=== PATIENT | female | born 1965 | race Caucasian/White ===

== ENCOUNTER → 2018-01-30 | Outpatient (CLI) | payer OTHER ==
[~2018-01-30] MED LIST: ADVIL200 M1 PO; FLEXERIL10 MG PO; Fioricet 325 MG1 TAB PO; MOTRIN800 MG PO; PREDNICOT20 MG PO; ULTRAM50 MG PO; VITAMIN D-32000 UNI1 PO
== END | disposition home or self-care (01) ==
LOC: MAMMO 03:45
DX: Z12.31 Encounter for screening mammogram for malignant neoplasm of breast (principal)

== ENCOUNTER → 2018-02-14 | Day surgery (SDC) | payer OTHER ==
[~2018-02-14] VITALS: Ht 157.4 cm; Wt 92.1 kg
--- NOTE | ~2018-02-14 | PROC NOTE ---
[place], [place] PROCEDURE NOTE NAME: MIKI HERNANDEZ UNIT #: [id number] ROOM: DOCTOR: RICH OAKLEY MD BIRTHDATE: [birth year] DOS: 02/14/2018 PREOPERATIVE DIAGNOSIS: Screening examination. POSTOPERATIVE DIAGNOSES: Sigmoid diverticulosis, sigmoid polyp x 1. PROCEDURE: Colonoscopy with polypectomy. ENDOSCOPIST: Rich Oakley MD FLOATING DERRICK OPERATOR: YOMAIRA. ANESTHESIA: MAC. INDICATIONS: This is a 52-year-old lady with the family history of colon cancer (son) who is here for a screening examination. The procedure and its complications were explained to the patient in detail preoperatively. Complications that were discussed included but were not limited to bleeding, missed lesions, colon perforation, and prolonged pain. She agreed to proceed. DESCRIPTION OF PROCEDURE: After identifying the patient, the patient was brought to the endoscopy suite and placed in the left lateral position. After IV sedation was administered, a timeout procedure was called in and a digital rectal exam was performed, which was within normal limits. An adult colonoscope was now introduced into the anal canal and advanced sequentially into the rectum, sigmoid colon, descending colon, transverse colon and ascending colon up to the cecum. Upon reaching the cecum, the scope was withdrawn. The prep was found to be optimal. Upon reaching the cecum, the procedure of the withdrawal took approximately 8 minutes and 30 seconds. There was sigmoid diverticulosis, which was mild to moderate in nature that was identified. Also, at approximately 40 cm from the anal verge, a single polyp was identified, which was removed with the help of a snare. It was then sucked out and sent for histopathological diagnosis. The biopsy site was visualized again and there was no bleeding seen. The rest of the colon was within normal limits. Upon removing the scope, the patient was brought back to the recovery room in stable fashion. There were no complications. Dr. Rich Oakley, the attending endoscopist, was present throughout the operating case. Based on these findings, the patient is recommended to have another colonoscopy in the next 3-5 years or sooner if she had new symptoms. These findings were discussed with the patient's next of kin in the recovery room. [place], [place] PROCEDURE NOTE NAME: MIKI HERNANDEZ UNIT #: [id number] ROOM: DOCTOR: RICH OAKLEY MD BIRTHDATE: [birth year] Rich Oakley MD CM:PROCNOTE:PROCEDURE NOTE [id number] RICH OAKLEY MD
[2018-02-14 08:00] VITALS: BP 117/69
[2018-02-14 09:00] VITALS: BP 78/39
[2018-02-14 09:15] VITALS: BP 92/54
[2018-02-14 09:21] VITALS: BP 106/70
== END | disposition home or self-care (01) ==
LOC: SDC 01-29 12:30
DX: Z12.11 Encounter for screening for malignant neoplasm of colon (principal); D12.5 Benign neoplasm of sigmoid colon; K57.30 Diverticulosis of large intestine without perforation or abscess without bleeding; I10 Essential (primary) hypertension; K21.9 Gastro-esophageal reflux disease without esophagitis; F17.210 Nicotine dependence, cigarettes, uncomplicated; G89.29 Other chronic pain; G62.9 Polyneuropathy, unspecified; E66.9 Obesity, unspecified; Z98.51 Tubal ligation status; Z79.899 Other long term (current) drug therapy; Z98.890 Other specified postprocedural states; Z68.37 Body mass index [BMI] 37.0-37.9, adult; Z80.0 Family history of malignant neoplasm of digestive organs; Z80.1 Family history of malignant neoplasm of trachea, bronchus and lung; Z80.49 Family history of malignant neoplasm of other genital organs

== ENCOUNTER 2018-08-28 10:10 | Emergency (ER) | payer OTHER ==
[~2018-08-28] VITALS: Ht 160 cm; Wt 77.1 kg
== END 2018-08-28 12:09 | disposition home or self-care (01) ==
LOC: ED 10:10
DX: M25.562 Pain in left knee (principal); M25.462 Effusion, left knee; Z79.899 Other long term (current) drug therapy; W18.39XA Other fall on same level, initial encounter; Y93.89 Activity, other specified; Y92.89 Other specified places as the place of occurrence of the external cause; Y99.8 Other external cause status

== ENCOUNTER 2019-03-07 09:41 | Emergency (ER) | payer OTHER ==
[~2019-03-07] VITALS: Ht 160 cm; Wt 77.1 kg
[2019-03-07 10:13] LABS: BILIRUBIN NEGATIVE (NEGATIVE); BLOOD 1+ (NEGATIVE); CLARITY CLOUDY (CLEAR); COLOR YELLOW (YELLOW); GLUCOSE NEGATIVE (NEGATIVE); KETONE NEGATIVE (NEGATIVE); LEUKO ESTERASE TRACE (NEGATIVE); NITRITE POSITIVE (NEGATIVE); SPECIFIC GRAVITY 1.025 (1.005-1.030); UROBILINOGEN 0.2 E.U./dl (0.2-1.0)
[2019-03-07 10:41] LABS: BACTERIA 4+
[2019-03-07 10:42] LABS: EPITHELIAL CELLS 20-30; RBC 16-20 rbc/hpf (0-2)
[2019-03-07] MEDS ORDERED: SEPTDS PO (10:56)
[2019-03-07] MEDS ORDERED: PYRIDIUM200 M1 PO (10:56)
== END 2019-03-07 11:00 | disposition home or self-care (01) ==
LOC: ED 09:41
PROVIDERS: Physician Assistant
DX: N39.0 Urinary tract infection, site not specified (principal); Z79.899 Other long term (current) drug therapy; Z98.51 Tubal ligation status

== ENCOUNTER 2019-06-17 13:16 | Emergency (ER) | payer OTHER ==
[~2019-06-17] VITALS: Ht 157.4 cm; Wt 77.1 kg
[~2019-06-17 13:16] MED LIST changes: +PYRIDIUM200 M1 PO; +SEPTDS PO
[2019-06-17 13:58] LABS: BILIRUBIN NEGATIVE (NEGATIVE); BLOOD NEGATIVE (NEGATIVE); CLARITY SL CLOUDY (CLEAR); COLOR YELLOW (YELLOW); GLUCOSE NEGATIVE (NEGATIVE); KETONE NEGATIVE (NEGATIVE); LEUKO ESTERASE TRACE (NEGATIVE); NITRITE NEGATIVE (NEGATIVE); UROBILINOGEN 0.2 E.U./dl (0.2-1.0)
[2019-06-17 14:05] LABS: BACTERIA 2+; EPITHELIAL CELLS 31-40; MUCOUS 3+
[2019-06-17] MEDS ORDERED: PYRIDIUM200 M1 PO (14:09)
[2019-06-17] MEDS ORDERED: CEFUROXIME AXE500 MG PO (14:09)
== END 2019-06-17 14:15 | disposition home or self-care (01) ==
LOC: ED 13:16
PROVIDERS: Emergency Medicine
DX: N39.0 Urinary tract infection, site not specified (principal); I10 Essential (primary) hypertension; Z79.899 Other long term (current) drug therapy; Z79.82 Long term (current) use of aspirin

== ENCOUNTER 2019-12-29 11:57 | Inpatient (IN) | payer OTHER ==
[~2019-12-29] VITALS: Ht 157.4 cm; Wt 79.4 kg
[~2019-12-29 11:57] MED LIST changes: +CEFUROXIME AXE500 MG PO
[2019-12-29 12:09] VITALS: BP 114/85
[2019-12-29 12:53] LABS: BASO % 0.2 % (0.0-1.0); HEMATOCRIT 38.6 % (37.0-47.0); LYMPH # 0.6 10*3/uL (1.3-4.4); LYMPH % 5.2 % (27.0-41.0); MEAN CELL VOLUME 82.3 fl (81.0-99.0); MEAN CORPUSCULAR HGB 26.7 pg (27.0-31.0); MEAN CORPUSCULAR HGB CONC 32.4 g/dl (33.0-37.0); MEAN PLATELET VOLUME 11.2 fl (9.6-12.3); MONO % 8.4 % (3.0-9.0); NEUT % 85.8 % (47.0-73.0); PLATELET COUNT AUTOMATED 317 10*3/uL (130-400); RED BLOOD COUNT 4.69 10*6/uL (4.10-5.10); RED CELL DISTRI WIDTH 15.4 % (0-14.5); WHITE BLOOD COUNT 11.6 10*3/uL (4.8-10.8)
[2019-12-29 13:02] LABS: BILIRUBIN 3+ (NEGATIVE); BLOOD NEGATIVE (NEGATIVE); CLARITY CLOUDY (CLEAR); COLOR ORANGE (YELLOW); GLUCOSE NEGATIVE (NEGATIVE); KETONE NEGATIVE (NEGATIVE); SPECIFIC GRAVITY 1.025 (1.005-1.030)
[2019-12-29 13:03] LABS: LEUKO ESTERASE TRACE (NEGATIVE); NITRITE NEGATIVE (NEGATIVE)
[2019-12-29 13:08] LABS: ALKALINE PHOSPHATASE 112 U/L (45-117); BUN 17 mg/dl (7-24); CHLORIDE 102 mmol/L (98-107); CREATININE 0.86 mg/dL (0.55-1.02); POTASSIUM 3.8 mmol/L (3.5-5.1); SGOT/AST 15 IU/L (3-35); SGPT/ALT 21 U/L (12-78); SODIUM 134 mmol/L (136-145); TOTAL PROTEIN 7.6 gm/dL (6.4-8.2)
[2019-12-29 13:11] LABS: BACTERIA 2+; EPITHELIAL CELLS 21-30; MUCOUS 1+
--- NOTE | 2019-12-29 14:00 | NUR ---
PT. RESTING QUIETLY IN BED WATCHING TV. WILL CONT TO MONITOR. CALL LIGHT IN REACH.
[2019-12-29 15:49] VITALS: BP 110/61
--- NOTE | 2019-12-29 15:51 | NUR ---
PT. QUIETLY RESTING IN BED ON CELL PHONE. WILL CONT TO MONITOR. CALL LIGHT IN REACH.
--- NOTE | 2019-12-29 16:14 | NUR ---
PT. IN BED RESTING APPEARS TO BE IN NO DISTRESS. WILL CONT TO MONITOR.
--- NOTE | 2019-12-29 17:35 | NUR ---
Time: 1734 A 54 year old FEMALE admitted to 5E under services of FAUSTINO MCKEON DO, Pt. arrived via bed from ER. Chief complaint: ABDOMINAL PAIN. DANIEL CHO
[2019-12-29] MEDS ORDERED: SIMVASTATIN20 MG PO (17:56)
[2019-12-29 20:00] VITALS: BP 149/78
--- NOTE | 2019-12-29 20:03 | NUR ---
PATIENT MEDICAED WITH DILUADID FOR COMPLAINTS OF PAIN TO HER ABDOMEN "ALL OVER" PATIENT REPORTS PAIN WORSENED AFTER SHE ATE, PATIENT HAD BROUGHT FOOD FROM HOME. RN INFORMED PATIENT OF NPO STATUS AND MADE AWARE THAT NPO MEANS NO EATING OR DRINKING BUT SHE IS ALLOWD SMALL AMOUNTS OF ICE CHIPS. PATIENT VERBALIZED UNDERSTANDING. CALL LIGHT MENDEZ GRECO. IV FLUIDS INFUSING PER DRS ORDERS RN WILL CONTINUE TO MONITOR
--- NOTE | 2019-12-29 21:05 | NUR ---
PATIENT REPORTS PAIN HAS LESSENED AFTER PRN MEDICATION EARLIER
[2019-12-30] VITALS: BP 108/62
--- NOTE | 2019-12-30 02:25 | NUR ---
PATIENT ADMINISTERED PRN DILUADID FOR COMPLAINTS OF ABOMINAL PAIN THAT WORSENED FTER GETTING UP TO GO O THE BATHROOM. RN WILL CONTINUE TO MONITOR
--- NOTE | 2019-12-30 03:30 | NUR ---
PATIENT RESTING WITH EYES CLOSED AT THIS TIME, EARLIER PRN MEDICATIONS SEEM EFFECTIVE
[2019-12-30 06:45] LABS: BASO % 0.2 % (0.0-1.0); EOS % 0.2 % (1.0-4.0); HEMATOCRIT 32.1 % (37.0-47.0); LYMPH # 0.9 10*3/uL (1.3-4.4); LYMPH % 7.3 % (27.0-41.0); MEAN CORPUSCULAR HGB 26.2 pg (27.0-31.0); MEAN CORPUSCULAR HGB CONC 31.2 g/dl (33.0-37.0); MEAN PLATELET VOLUME 11.9 fl (9.6-12.3); MONO # 0.9 10*3/uL (0.1-1.0); MONO % 7.9 % (3.0-9.0); NEUT # 9.8 10*3/uL (2.3-7.9); PLATELET COUNT AUTOMATED 267 10*3/uL (130-400); RED BLOOD COUNT 3.82 10*6/uL (4.10-5.10); RED CELL DISTRI WIDTH 15.6 % (0-14.5); WHITE BLOOD COUNT 11.6 10*3/uL (4.8-10.8)
[2019-12-30 07:14] LABS: INTERNATIONAL NORM RATIO 1.2 (2.0-3.5)
[2019-12-30 07:21] LABS: ALBUMIN 2.4 gm/dl (3.1-4.5); BUN 15 mg/dl (7-24); CHLORIDE 104 mmol/L (98-107); POTASSIUM 3.9 mmol/L (3.5-5.1); SODIUM 136 mmol/L (136-145); TOTAL PROTEIN 6.3 gm/dL (6.4-8.2)
[2019-12-30 07:45] LABS: ALKALINE PHOSPHATASE 70 U/L (45-117); CHOLESTEROL 100 mg/dL (<200); CREATININE 0.72 mg/dL (0.55-1.02); FREE T4 1.35 ng/dl (0.76-1.46); HDL CHOLESTEROL 25 mg/dl (40-60); LDL CHOLESTEROL 60 mg/dL (9-159); SGOT/AST 7 IU/L (3-35); SGPT/ALT 13 U/L (12-78); TRIGLYCERIDES 76 mg/dl (<150); VLDL CHOLESTEROL 15 mg/dL (6-40)
[2019-12-30 08:00] VITALS: BP 110/67
--- NOTE | 2019-12-30 09:00 | NUR ---
Crab Picker in to talk to patient. Patient states lives at home with boyfriend. There are one steps in the home. Physician: verna lorenzo Pharmacy: mail Home health services: none Patient's level of ADLs: INDEPENDENT Patient has working utilities: all working DME: none Follow-up physician's appointment after d/c: will be made by hospitalist nurse director upon discharge Does patient want to access PORTAL?: no Discharge plan discussed with patient, she states she lives at home with her boyfriend, she states she is independent in adls and ambulation, she states she doesn't drive but her sister in law takes her wherever she needs to go, she states her sister in law will transport her home from the hospital when she is discharged. she denies any home needs at this time, case management will follow. J CARLOS ELLIOTT
--- NOTE | 2019-12-30 09:53 | NUR ---
PATIENT COMPLAINING OF PAIN IN ABDOMEN, ADMINISTERED IV PRN DILAUDID.
--- NOTE | 2019-12-30 10:24 | NUR ---
PRN IV DILAUDID EFFECTIVE, PER PATIENT.
[2019-12-30 12:00] VITALS: BP 132/78
[2019-12-30 13:20] LABS: VITAMIN D, 25-HYDROXY 39.4 ng/mL (30-100)
--- NOTE | 2019-12-30 13:39 | NUR ---
PATIENT WITH COMPLAINTS OF ABDOMINAL PAIN, HURTS TO TURN. ADMINISTERED IV PRN DILUADID FOR THE PAIN.
--- NOTE | 2019-12-30 14:30 | NUR ---
PRN IV DILAUDID EFFECTIVE, PER PATIENT.
[2019-12-30 16:00] VITALS: BP 137/73
[2019-12-30 20:00] VITALS: BP 118/72
--- NOTE | 2019-12-30 20:50 | NUR ---
PATIEN WAS MEDICATED WITH DILAUDID FOR C/O ABD PAIN 01/21. WILL MONITOR
[2019-12-31] VITALS: BP 98/62
--- NOTE | 2019-12-31 01:56 | NUR ---
PATIENT MEDICATED WITH DILAUDID FOR C/O 10/10 ABDOMEN PAIN. WILL MONITOR
[2019-12-31 06:53] LABS: BASO % 0.2 % (0.0-1.0); EOS % 0.3 % (1.0-4.0); HEMATOCRIT 30.5 % (37.0-47.0); LYMPH # 0.7 10*3/uL (1.3-4.4); LYMPH % 5.2 % (27.0-41.0); MEAN CELL VOLUME 82.9 fl (81.0-99.0); MEAN CORPUSCULAR HGB 25.5 pg (27.0-31.0); MEAN CORPUSCULAR HGB CONC 30.8 g/dl (33.0-37.0); MEAN PLATELET VOLUME 11.6 fl (9.6-12.3); MONO % 7.2 % (3.0-9.0); NEUT # 11.5 10*3/uL (2.3-7.9); NEUT % 86.3 % (47.0-73.0); PLATELET COUNT AUTOMATED 275 10*3/uL (130-400); RED BLOOD COUNT 3.68 10*6/uL (4.10-5.10); RED CELL DISTRI WIDTH 15.6 % (0-14.5); WHITE BLOOD COUNT 13.3 10*3/uL (4.8-10.8)
--- NOTE | 2019-12-31 07:01 | NUR ---
PATIENT MEDICATED WITH DILAUDID FOR ABD PAIN 12/11. WILL MONITOR
[2019-12-31 08:00] VITALS: BP 105/65
--- NOTE | 2019-12-31 09:00 | NUR ---
case management visits with patient, she states she will return home when discharged. again discussed with her VNA and she declines any home needs
[2019-12-31 12:00] VITALS: BP 101/68
--- NOTE | 2019-12-31 13:51 | NUR ---
PATIENT MEDICATED WITH PRN IV DILAUDID FOR ABDOMINAL PAIN. DR. MATA WAS IN TO SEE PATIENT RE: PLAN OF CARE, ORDER ENTERED FOR FULL LIQUID DIET, PATIENT TO ORDER A MEAL.
[2019-12-31 16:00] VITALS: BP 118/63
--- NOTE | 2019-12-31 18:02 | NUR ---
MEDICATED WITH PRN IV DILAUDID FOR ABDOMINAL PAIN.
--- NOTE | 2019-12-31 18:41 | NUR ---
PRN IV DILAUDID EFFECTIVE, PER PATIENT.
[2019-12-31 20:00] VITALS: BP 124/92
--- NOTE | 2019-12-31 22:40 | NUR ---
Hep Lock discontinued RAN. Site symptomatic, LEAKING. Pressure applied. Sterile dressing applied. ALFONZO COYNE
--- NOTE | 2019-12-31 22:45 | NUR ---
IV started right arm with #20 angiocath after 0 attempts. The IV site was prepped with Chloraprep. Heparin lock attached. Sterile dressing applied. Patient tolerated precedure well. Procedure performed according to [facility] policy & procedure. ALFONZO COYNE
--- NOTE | 2019-12-31 22:45 | NUR ---
IV started right arm with #20 protective cath after 0 attempts. Site prepped with Chloroprep. Sterile dressing applied. Patient tolerated procedure well. ALFONZO COYNE
--- NOTE | 2019-12-31 22:48 | NUR ---
PATIENT MEDICATED WITH IV DILAUDID FOR C/O 12/11 ABD PAIN. WILL MONITOR
[2020-01-01] VITALS: BP 121/69
--- NOTE | 2020-01-01 04:31 | NUR ---
PATIENT MEDICATED WITH DILAUDID FRO C/O ABD PAIN 11/11. WILL MONITOR
[2020-01-01 06:07] LABS: BASO % 0.2 % (0.0-1.0); EOS # 0.1 10*3/uL (0.0-0.4); EOS % 0.8 % (1.0-4.0); HEMATOCRIT 29.8 % (37.0-47.0); LYMPH # 0.7 10*3/uL (1.3-4.4); LYMPH % 5.8 % (27.0-41.0); MEAN CELL VOLUME 82.8 fl (81.0-99.0); MEAN CORPUSCULAR HGB 26.4 pg (27.0-31.0); MEAN CORPUSCULAR HGB CONC 31.9 g/dl (33.0-37.0); MEAN PLATELET VOLUME 11.7 fl (9.6-12.3); MONO # 1.3 10*3/uL (0.1-1.0); MONO % 10.4 % (3.0-9.0); NEUT # 10.1 10*3/uL (2.3-7.9); NEUT % 82.1 % (47.0-73.0); PLATELET COUNT AUTOMATED 272 10*3/uL (130-400); RED CELL DISTRI WIDTH 15.6 % (0-14.5); WHITE BLOOD COUNT 12.3 10*3/uL (4.8-10.8)
[2020-01-01 06:17] LABS: BUN 9 mg/dl (7-24); CHLORIDE 102 mmol/L (98-107); CREATININE 0.67 mg/dL (0.55-1.02); POTASSIUM 3.2 mmol/L (3.5-5.1); SODIUM 134 mmol/L (136-145)
[2020-01-01 08:00] VITALS: BP 120/78
--- NOTE | 2020-01-01 09:00 | NUR ---
case management visits with patient, she states she will return home when discharged and denies any home needs, case management will follow
--- NOTE | 2020-01-01 09:07 | NUR ---
IV DILUADID GIVEN PER REQUEST FOR 4/10 ABDOMEN PAIN, TENDER SOFT ABDOMEN.
--- NOTE | 2020-01-01 10:07 | NUR ---
DILUADID EFFECTIVE PER PATIENT.
--- NOTE | 2020-01-01 11:35 | NUR ---
Shift chart check completed.
[2020-01-01 12:00] VITALS: BP 113/68
[2020-01-01 16:00] VITALS: BP 131/83
--- NOTE | 2020-01-01 17:28 | NUR ---
PT REQUESTING IV DILUADID FOR 7/10 PAIN IN THE ABD.
--- NOTE | 2020-01-01 18:01 | NUR ---
PT REPORTS THE DILUADID WAS EFFECITVE AT THIS TIME.
[2020-01-01 20:00] VITALS: BP 129/74
--- NOTE | 2020-01-01 20:53 | NUR ---
24 HR chart check completed.
--- NOTE | 2020-01-01 21:31 | NUR ---
DILAUDID GIVEN PER ORDER FOR LOWER ABD PAIN RATED "6-7" PER PT. SEE MAR.
--- NOTE | 2020-01-01 22:25 | NUR ---
PT. C/O HAVING A SLIGHT WHEEZE AND COUGH BUT UNABLE TO GET ANYTHING OUT. PATIEN DOES NOT WANT X-RAY. JUT WANTS COUGH MEDICATION.
--- NOTE | 2020-01-01 22:30 | NUR ---
DILAUDID EFFECTIV FOR PAIN PER PT.
--- NOTE | 2020-01-01 22:36 | NUR ---
CALLED DR. MILLARD AND DISCUSSED WITH HIM PATIENT WANTING SOMETHING TO HELP HER LOOSEN HER COUGH. ORDERS TO BE RECIEVED.
[2020-01-02] VITALS: BP 129/76
--- NOTE | 2020-01-02 01:51 | NUR ---
DILAUDID GIVEN PER ORDER SLOW IV PUSH FOR LOWER ABD PAIN RATED "10" WHEN SHE WAS UP MOVING BUT NOT BAD WITH LAYING "5-6".
--- NOTE | 2020-01-02 04:06 | NUR ---
SLEEPING NO ACUTE DISTRESS NOTED.
[2020-01-02 06:20] LABS: BASO % 0.3 % (0.0-1.0); EOS # 0.2 10*3/uL (0.0-0.4); EOS % 1.3 % (1.0-4.0); LYMPH # 1.2 10*3/uL (1.3-4.4); LYMPH % 10.3 % (27.0-41.0); MEAN CELL VOLUME 83.1 fl (81.0-99.0); MEAN CORPUSCULAR HGB 26.1 pg (27.0-31.0); MEAN CORPUSCULAR HGB CONC 31.4 g/dl (33.0-37.0); MEAN PLATELET VOLUME 11.8 fl (9.6-12.3); MONO # 1.4 10*3/uL (0.1-1.0); MONO % 11.6 % (3.0-9.0); NEUT # 8.9 10*3/uL (2.3-7.9); NEUT % 75.5 % (47.0-73.0); PLATELET COUNT AUTOMATED 307 10*3/uL (130-400); RED BLOOD COUNT 3.49 10*6/uL (4.10-5.10); RED CELL DISTRI WIDTH 15.8 % (0-14.5); WHITE BLOOD COUNT 11.7 10*3/uL (4.8-10.8)
[2020-01-02 06:40] LABS: BUN 6 mg/dl (7-24); CHLORIDE 105 mmol/L (98-107); CREATININE 0.56 mg/dL (0.55-1.02); POTASSIUM 3.2 mmol/L (3.5-5.1); SODIUM 137 mmol/L (136-145)
[2020-01-02 08:00] VITALS: BP 144/82
--- NOTE | 2020-01-02 09:00 | NUR ---
case management visits with patient, she states she will return home when discharged, discussed with her VNA and she declines any home needs at this time, case management will follow
--- NOTE | 2020-01-02 09:15 | NUR ---
SPOKE WITH JOHNATHAN HERNANDEZ TO UPGRADE PT TO SOFT DIET.
--- NOTE | 2020-01-02 11:15 | NUR ---
Shift chart check completed.
[2020-01-02 12:00] VITALS: BP 125/67; BP 138/80
--- NOTE | 2020-01-02 12:23 | NUR ---
MEDICATED WITH TYLENOL ORDERED FOR COMPLAINTS OF ABDOMINAL PAIN. RATE PAIN AT 6 OUT OF 10. WILL MONITOR EFFECTS. JERI BRITT OVCT SN
--- NOTE | 2020-01-02 13:23 | NUR ---
PT STATES THAT TYLENOL IS EFFECTIVE AT THIS TIME.
--- NOTE | 2020-01-02 14:48 | NUR ---
TEMP RECHECK WAS 98.2 ORALLY AT THIS TIME, STATES THE TYLENOL WAS EFFECTIVE AT RELIEVING SOME OF THE PAIN. RETURNED PHONE CALL TO DR. SCHRADER TO MAKE HIM AWARE.
[2020-01-02 16:00] VITALS: BP 143/88
--- NOTE | 2020-01-02 16:20 | NUR ---
PREVIOUS IV IN RA D/C, CATHETER INTACT UPON REMOVAL. NEW IV ATTEMPTS X 2, 22G TO R WRIST, FLUSHES WITH EASE AND CATHETER LOCKED WITH SALINE. FLUIDS RESTARTED PER ORDER.
--- NOTE | 2020-01-02 17:25 | NUR ---
PT OFF THE UNIT AT THIS TIME VIA WC TO CT.
--- NOTE | 2020-01-02 17:47 | NUR ---
PT RETURNED TO UNIT AT THIS TIME.
--- NOTE | 2020-01-02 17:58 | NUR ---
PT REQUESTING PRN PAIN MEDICATIONS FOR 6/10 ABD PAIN, AMBULATION ONLY WORSENS THE PAIN.
--- NOTE | 2020-01-02 18:50 | NUR ---
PT REPORTS THE PRN PAIN MEDS WERE EFFECTIVE, SEE EMAR.
--- NOTE | 2020-01-02 19:07 | NUR ---
NOTIFIED TEAM 1 OF HOSPITALIST OF PT RESULTS OF CT SCAN, THEY STATED THEY WILL LOOK AT IT.
--- NOTE | 2020-01-02 19:22 | NUR ---
DR. MILLARD CALLED AND WANTS DR. MATA CALLED TO SEE WHAT FURTHER CARE NEEDS DONE.
--- NOTE | 2020-01-02 19:27 | NUR ---
PER INTERNAL MEDICINE, THEY WANTED NOTIFIED OF CT SCAN RESULTS. CT RESULTS CALLED IN TO DR. MATA.
[2020-01-02 20:00] VITALS: BP 149/84
--- NOTE | 2020-01-02 20:44 | NUR ---
24 HR chart check completed.
--- NOTE | 2020-01-02 22:09 | NUR ---
DILAUDID GIVEN PER ORDER FOR LOWER ABD PAIN RATED "7-8" WORSE WITH MOVMENT. SEE MAR.
--- NOTE | 2020-01-02 23:05 | NUR ---
DILAUDID EFFECTIVE FOR PAIN PER PT.
[2020-01-03] VITALS: BP 141/79
[2020-01-03 06:11] LABS: HEMATOCRIT 28.8 % (37.0-47.0); MEAN CELL VOLUME 82.5 fl (81.0-99.0); MEAN CORPUSCULAR HGB 26.6 pg (27.0-31.0); MEAN CORPUSCULAR HGB CONC 32.3 g/dl (33.0-37.0); MEAN PLATELET VOLUME 11.3 fl (9.6-12.3); PLATELET COUNT AUTOMATED 334 10*3/uL (130-400); RED BLOOD COUNT 3.49 10*6/uL (4.10-5.10); RED CELL DISTRI WIDTH 15.9 % (0-14.5); WHITE BLOOD COUNT 15.7 10*3/uL (4.8-10.8)
[2020-01-03 06:35] LABS: BUN 4 mg/dl (7-24); CHLORIDE 104 mmol/L (98-107); CREATININE 0.53 mg/dL (0.55-1.02); SODIUM 137 mmol/L (136-145)
[2020-01-03 06:51] LABS: ATYPICAL LYMPHS 1 % (0-0); TOTAL CELLS COUNTED 100 #CELLS
[2020-01-03 06:52] LABS: PLATELET SUFFICIENCY NORMAL (NORMAL)
--- NOTE | 2020-01-03 07:30 | NUR ---
TOOK OVER CARE OF PT. PT RESTING IN BED. RESPIRATIONS EASY AND UNLABORED ON ROOM AIR. NO S/S OF DISTRESS. IV FLUIDS INFUSING PER ORDERS. ALL NEEDS MET. CALL LIGHT IN REACH.
[2020-01-03 08:00] VITALS: BP 145/78
--- NOTE | 2020-01-03 09:33 | NUR ---
DILAUDID 1 MG GIVEN VIA IV AT THIS TIME FOR C/O ABDOMINAL PAIN. PT RATES PAIN 01/11. WILL MONITOR FOR EFFECTIVENESS. CALL LIGHT IN REACH.
--- NOTE | 2020-01-03 10:33 | NUR ---
PT STATES THAT DILAUDID IS EFFECTIVE.
--- NOTE | 2020-01-03 11:56 | NUR ---
DR ANGELES NOTIFIED THAT PT LOVENOX IS PUT ON HOLD FOR TOMORROW(SUNDAY) AND SUNDAY DUE TO PROCEDURE ON SUNDAY MORNING WITH INTERVENTIONAL RADIOLOGY. THIS IS PER INTERVENTIONAL RADIOLOGY POLICY.
[2020-01-03 12:00] VITALS: BP 139/90
--- NOTE | 2020-01-03 12:46 | NUR ---
Shift chart check completed.
--- NOTE | 2020-01-03 13:22 | NUR ---
PT GIVEN DILAUDID 1 MG FOR C/O PAIN TO ABDOMEN. WILL MONITOR FOR EFFECTIVENESS. CALL LIGHT IN REACH.
--- NOTE | 2020-01-03 14:22 | NUR ---
PT STATES THAT DILAUDID IS EFFECTIVE.
[2020-01-03 16:00] VITALS: BP 131/74
--- NOTE | 2020-01-03 17:12 | NUR ---
PT GIVEN DILAUDID 1 MG AT THIS TIME FOR C/O PAIN TO ABDOMEN. RATES PAIN A "7" ON 1-10 SCALE. WILL MONITOR FOR EFFECTIVENESS. PT SITTING UP IN BED. IV FLUIDS INFUSING. CALL LIGHT IN REACH.
[2020-01-03 20:00] VITALS: BP 155/82
--- NOTE | 2020-01-03 21:10 | NUR ---
DILAUDID GIVEN PER ORDER FOR LOWER ABD PAIN RATED "8" WITH MOVEMENT. SEE MAR.
--- NOTE | 2020-01-03 22:10 | NUR ---
DILAUDID EFFECTIVE FOR PAIN PER PT.
[2020-01-04] VITALS: BP 132/85
--- NOTE | 2020-01-04 01:41 | NUR ---
PRN DILAUDID GIVEN FOR C/O ABDOMINAL PAIN RATING A 7/10. CALL LIGHT IS WITHIN REACH, WILL MONITOR EFFECT.
--- NOTE | 2020-01-04 02:35 | NUR ---
DILAUDID EFFECTIVE FOR PAIN. PATIENT RESTING COMFORTABLY
--- NOTE | 2020-01-04 03:14 | NUR ---
24 HR chart check completed.
--- NOTE | 2020-01-04 04:35 | NUR ---
SPOKE WITH DR. MILLARD ABOUT IV FLUIDS BAG NUMBER 15 AND ORDER TO BE RECIEVED.
[2020-01-04 06:16] LABS: HEMATOCRIT 29.2 % (37.0-47.0); MEAN CELL VOLUME 82.3 fl (81.0-99.0); MEAN CORPUSCULAR HGB 26.2 pg (27.0-31.0); MEAN CORPUSCULAR HGB CONC 31.8 g/dl (33.0-37.0); MEAN PLATELET VOLUME 11.1 fl (9.6-12.3); PLATELET COUNT AUTOMATED 384 10*3/uL (130-400); RED BLOOD COUNT 3.55 10*6/uL (4.10-5.10); RED CELL DISTRI WIDTH 15.9 % (0-14.5); WHITE BLOOD COUNT 18.3 10*3/uL (4.8-10.8)
[2020-01-04 06:34] LABS: BUN 4 mg/dl (7-24); CHLORIDE 105 mmol/L (98-107); CREATININE 0.55 mg/dL (0.55-1.02); POTASSIUM 3.3 mmol/L (3.5-5.1); SODIUM 138 mmol/L (136-145)
[2020-01-04 06:46] LABS: TOTAL CELLS COUNTED 100 #CELLS
[2020-01-04 06:47] LABS: PLATELET SUFFICIENCY NORMAL (NORMAL)
[2020-01-04 08:00] VITALS: BP 119/72
--- NOTE | 2020-01-04 08:04 | NUR ---
IN PT ROOM TO COMPLETE ASSESSMENT. PT IS SLEEPING, WILL COME BACK. CALL LIGHT WITHIN REACH OF PATIENT, WILL CONTINUE TO MONITOR
--- NOTE | 2020-01-04 08:50 | NUR ---
PRN DILAUDID IV GIVEN AT THIS TIME FOR PAIN RATED A 8/10. WILL MONITOR FOR EFFECTIVENESS
--- NOTE | 2020-01-04 08:56 | NUR ---
DR ANGELES IN TO SEE PATIENT
--- NOTE | 2020-01-04 09:00 | NUR ---
DR ANGELES ON THE FLOOR AND STATES TO CONTINUE SIMVISTATIN PER PT REQUEST, AND TO HOLD ADVIL
--- NOTE | 2020-01-04 09:25 | NUR ---
PT STATES DIALUDID EFFECTIVE
[2020-01-04 12:00] VITALS: BP 148/89
--- NOTE | 2020-01-04 12:54 | NUR ---
PRN DILAUDID IV GIVEN FOR PAIN RATED 8/10. WILL MINITOR FOR EFFECTIVENESS
--- NOTE | 2020-01-04 13:40 | NUR ---
PRN DILAUDID EFFECTIVE PER PT. WILL CONTINUE TO MONITOR
[2020-01-04 16:00] VITALS: BP 129/71
--- NOTE | 2020-01-04 17:44 | NUR ---
PRN DILAUDID IV GIVEN FOR COMPLAINTS OF PAIN, WILL MONITOR FOR EFFECTIVENESS
[2020-01-04 20:00] VITALS: BP 139/76
--- NOTE | 2020-01-04 20:10 | NUR ---
PATIENT ASSESSMENT COMPLETED AT THIS TIME WITHOUT INCIDENT. PATIENT DENIES ANY CHEST PAIN OR SHORTNESS OF BREATH, DOES COMPLAIN OF ONGOING PAIN IN HER ABDOMEN, WHICH SHE IS HAVING A DRAIN PLACED TOMORROW BY IR. A&O X3, DENIES ANY OTHER DISTRESS. IV SITE INTACT AND FUNCTIONAL. CALL LIGHT WITHIN REACH, WILL CONTINUE TO MONITOR.
--- NOTE | 2020-01-04 21:27 | NUR ---
PRN DILAUDID IV GIVEN AT THIS TIME FOR 9/10 PAIN TO PATIENT LOWER ABDOMEN. A&O X3, CALL LIGHT WITHIN REACH, WILL CONTINUE TO MONITOR.
--- NOTE | 2020-01-04 22:10 | NUR ---
PATIENT STATED HER PAIN WAS NOW A 5/10 AFTER PRN IV DILAUDID WAS GIVEN. A&O X3, CALL LIGHT WITHIN REACH, WILL CONTINUE TO MONITOR.
[2020-01-05] VITALS: BP 153/77
--- NOTE | 2020-01-05 | NUR ---
PATIENT RESTING IN BED IN A SEATED POSITION, IV ANTIBIOTICS COMPLETED. PATIENT DENIES ANY PAIN OR DISTRESS OTHER THAN HER ABDOMEN AT THIS TIME. A&O X3, CALL LIGHT WITHIN REACH, WILL CONTINUE TO MONITOR.
--- NOTE | 2020-01-05 01:32 | NUR ---
PRN IV DILAUDID GIVEN AT THIS TIME FOR 8/10 PAIN TO LEFT ABDOMEN. A&O X3, CALL LIGHT WITHIN REACH, WILL CONTINUE TO MONITOR.
--- NOTE | 2020-01-05 02:15 | NUR ---
PATIENT RESTING IN BED IN A POSITION OF COMFORT WITH EYES CLOSED AT THIS TIME, NO SIGNS OR SYMPTOMS OF PAIN OR DISTRESS NOTED AT THIS TIME. PRN DILAUDID APPEARS TO HAVE BEEN EFFECTIVE AT THIS TIME. CALL LIGHT WITHIN REACH, WILL CONTINUE TO MONITOR.
--- NOTE | 2020-01-05 05:57 | NUR ---
PRN IV DILAUDID GIVEN AT THIS TIME FOR 6/10 PAIN IN PATIENT LEFT LOWER ABDOMEN. A&O X3, CALL LIGHT WITHIN REACH, WILL CONTINUE TO MONITOR.
[2020-01-05 06:27] LABS: HEMATOCRIT 28.6 % (37.0-47.0); MEAN CELL VOLUME 82.7 fl (81.0-99.0); MEAN CORPUSCULAR HGB 25.7 pg (27.0-31.0); MEAN CORPUSCULAR HGB CONC 31.1 g/dl (33.0-37.0); MEAN PLATELET VOLUME 10.8 fl (9.6-12.3); PLATELET COUNT AUTOMATED 427 10*3/uL (130-400); RED BLOOD COUNT 3.46 10*6/uL (4.10-5.10); WHITE BLOOD COUNT 17.8 10*3/uL (4.8-10.8)
--- NOTE | 2020-01-05 06:30 | NUR ---
PATIENT STATED THAT PRN IV DILAUDID HAD REDUCED HER LEFT LOWER ABDOMINAL PAIN TO A 4/10 AT THIS TIME. A&O X3. CALL LIGHT WITHIN REACH, WILL CONTINUE TO MONITOR.
[2020-01-05 06:38] LABS: ACT PARTIAL THROMBO TIME 25.6 SECONDS (20.0-32.1); INTERNATIONAL NORM RATIO 1.1 (2.0-3.5)
[2020-01-05 06:51] LABS: BUN 6 mg/dl (7-24); CHLORIDE 103 mmol/L (98-107); CREATININE 0.57 mg/dL (0.55-1.02); POTASSIUM 3.3 mmol/L (3.5-5.1); SODIUM 138 mmol/L (136-145)
[2020-01-05 07:17] LABS: PLATELET SUFFICIENCY HIGH (NORMAL); POLYCHROMASIA SLIGHT; TOTAL CELLS COUNTED 100 #CELLS
--- NOTE | 2020-01-05 07:50 | NUR ---
ASSESSMENT COMPLETE WITHOUT INCIDENCE. PT STATES SHE IS STILL HAVING LLQ PAIN. SHE IS CURIOUS TO WHEN HER SURGERY IS GOING TO BE. PT REMAINS NPO FOR HER SURGERY. RESPIRATIONS ARE RELAXED AND REGULAR. CALL LIGHT WITHIN REACH, WILL CONTINUE TO MONITOR.
[2020-01-05 08:00] VITALS: BP 122/69
--- NOTE | 2020-01-05 08:48 | NUR ---
CT CALLED [facility] STATES THEY WILL BE TAKING PATIENT AROUND 1130, AND TO HOLD ANY LOVENOX OR BLOOD THINNERS
--- NOTE | 2020-01-05 09:00 | NUR ---
case management visits with patient, again discussed a discharge plan and any home needs, patient stated she will return home when discharged and denies any home needs including home health, she states she is having a procedure today and is hoping to be discharged home in the next few days, case management will follow
--- NOTE | 2020-01-05 09:30 | NUR ---
DR DIAZ IN TO SEE PATIENT
[2020-01-05 12:00] VITALS: BP 124/71
--- NOTE | 2020-01-05 12:22 | NUR ---
PRN DILAUDID IV GIVEN FOR COMPLAINTS OF PAIN 12/11, WILL MONITOR FOR EFFECTIVENESS
--- NOTE | 2020-01-05 13:07 | NUR ---
IV started left hand with #22 protective cath after 1 attempts. Site prepped with Chloroprep. Sterile dressing applied. Patient tolerated procedure well. OLGA LIDIA RUBALCAVA
--- NOTE | 2020-01-05 15:43 | NUR ---
PT FLUSHED WITH 10 CC NSS, THEN ASPIRATED BACK OUT AFTERWARDS. PT DRAIN HAD 15 IN IT PRIOR TO FLUSHING
[2020-01-05 16:00] VITALS: BP 115/63
--- NOTE | 2020-01-05 17:45 | NUR ---
PRN DULCOLAX PO GIVEN PER PT REQUEST OF ANGE. WILL MONITOR FOR EFFECTIVENESS
--- NOTE | 2020-01-05 17:48 | NUR ---
PRN TYLENOL PO GIVEN FOR COMPLAINTS OF LLQ PAIN. WILL MONITOR FOR EFFECTIVENESS
--- NOTE | 2020-01-05 18:30 | NUR ---
PRN TYLENOL EFFECTIVE PER PT
[2020-01-05 20:00] VITALS: BP 130/77
[2020-01-06] VITALS: BP 149/86
[2020-01-06 06:46] LABS: HEMATOCRIT 31.2 % (37.0-47.0); MEAN CELL VOLUME 83.2 fl (81.0-99.0); MEAN CORPUSCULAR HGB 26.1 pg (27.0-31.0); MEAN CORPUSCULAR HGB CONC 31.4 g/dl (33.0-37.0); PLATELET COUNT AUTOMATED 450 10*3/uL (130-400); RED BLOOD COUNT 3.75 10*6/uL (4.10-5.10); RED CELL DISTRI WIDTH 16.1 % (0-14.5); WHITE BLOOD COUNT 16.3 10*3/uL (4.8-10.8)
[2020-01-06 07:22] LABS: BUN 6 mg/dl (7-24); CHLORIDE 106 mmol/L (98-107); POTASSIUM 3.3 mmol/L (3.5-5.1); SODIUM 140 mmol/L (136-145)
[2020-01-06 07:25] LABS: CREATININE 0.56 mg/dL (0.55-1.02)
[2020-01-06 07:44] LABS: OVALOCYTES FEW; PLATELET SUFFICIENCY HIGH (NORMAL); POLYCHROMASIA SLIGHT; TOTAL CELLS COUNTED 100 #CELLS
[2020-01-06 08:00] VITALS: BP 153/90
--- NOTE | 2020-01-06 08:34 | NUR ---
ASSESSMENT COMPLETE WITH NO INCIDENCE. WHILE COMPLETING ASSESSMENT NOTICED PT IV WAS NO LONGER IN PLACE. PT STATES SHE IS HAVING PAIN IN THE LLQ. RESPIRATIONS RELAXED AND REGULAR. CALL LIGHT WITHIN REACH, WILL CONTINUE TO MONITOR
--- NOTE | 2020-01-06 08:44 | NUR ---
DR LIN ON FLOOR AND MADE AWARE THAT THE PT HAS NO IV SITE. SHE STATES TO PLACE ANOTHER IV SO SHE CAN CONTINUE TO GET HER ANTIBIOTICS
--- NOTE | 2020-01-06 09:00 | NUR ---
case management visits with patient, patient had a drain placed yesterday, discussed with her a discharge plan and she stated she would return home, also discussed with her VNA to help maintain her drain. she was receptive to this and chose [facility], case managment will send a referral to [facility], patient is a possible discharge to home today
[2020-01-06] MEDS ORDERED: AUGMENTIN 875-875 MG PO (11:27)
[2020-01-06] MEDS ORDERED: NORCO 5-325 TA1 EACH PO (11:27)
[2020-01-06] MEDS ORDERED: K-TAB20 MEQ PO (11:27)
[2020-01-06 12:00] VITALS: BP 148/79
--- NOTE | 2020-01-06 12:16 | NUR ---
WENT OVER DISCHARGE PLANS WITH THE PATIENT, SHE HAS NO QUESTIONS AT THIS TIME. PT IS GIVEN DR SHRESTHA NUMBER IF SHE HAS ANY QUESTIONS OR CONCERNS. IV WAS ALREADY TAKEN OUT EARLIER IN THE DAY, AND SHE HAS NO TOGGLER. WILL WAIT FOR PT TO PUT CALL LIGHT ON TO BE WHEELED OUT
--- NOTE | 2020-01-06 12:25 | NUR ---
PT LEAVING FLOOR AT THIS TIME
--- NOTE | 2020-01-06 13:55 | NUR ---
case management faxed patient's information to [facility] and notified them that patient was discharged to home today
--- NOTE | 2020-01-09 14:11 | NUR ---
DIGITIZER RECEIVED THE FOLLOW EMAIL FROM [facility]: "Attempted to call patient to schedule a SOC visit for this evening. Patient's phone has a recording that the phone has calling restrictions that do not allow the call to go through. Called the emergency contact. Spoke with him. He stated that if the patient wants home health, she will call us. Referral on hold at this time. Rui Woody RN"
== END 2020-01-06 13:23 | disposition home or self-care (01) | DRG 720 ==
LOC: ED 11:57 → EDHOLD 16:50 → 5E 17:25 → EDHOLD 17:25 → 5E 17:35
PROVIDERS: Family Medicine; Hospitalist; Internal Medicine; Nurse Practitioner Family; ADMIT Internal Medicine
PROC: 0D9N30Z Drainage of Sigmoid Colon with Drainage Device, Percutaneous Approach (ICD-10-PCS; principal; 2020-01-05)
DX: A41.9 Sepsis, unspecified organism (principal); E87.1 Hypo-osmolality and hyponatremia; R73.9 Hyperglycemia, unspecified; F17.210 Nicotine dependence, cigarettes, uncomplicated; E66.9 Obesity, unspecified; E87.6 Hypokalemia; E78.5 Hyperlipidemia, unspecified; K57.20 Diverticulitis of large intestine with perforation and abscess without bleeding; E44.0 Moderate protein-calorie malnutrition; K65.1 Peritoneal abscess; N20.0 Calculus of kidney; D64.9 Anemia, unspecified; Z68.32 Body mass index [BMI] 32.0-32.9, adult; Z98.51 Tubal ligation status; Z82.49 Family history of ischemic heart disease and other diseases of the circulatory system; Z83.3 Family history of diabetes mellitus; Z80.8 Family history of malignant neoplasm of other organs or systems; Z84.89 Family history of other specified conditions

== ENCOUNTER → 2020-01-19 | Outpatient (CLI) | payer OTHER ==
[~2020-01-19] MED LIST changes: +AUGMENTIN 875-875 MG PO; +K-TAB20 MEQ PO; +NORCO 5-325 TA1 EACH PO; +SIMVASTATIN20 MG PO
== END | disposition home or self-care (01) ==
LOC: CT 01-16 11:00
DX: K42.9 Umbilical hernia without obstruction or gangrene (principal); D25.9 Leiomyoma of uterus, unspecified; N20.0 Calculus of kidney; K52.9 Noninfective gastroenteritis and colitis, unspecified; K57.81 Diverticulitis of intestine, part unspecified, with perforation and abscess with bleeding

== ENCOUNTER → 2020-02-03 | Outpatient (CLI) | payer OTHER | END | disposition home or self-care (01) | LOC: MAMMO 14:26 | PROVIDERS: ATTEND Physician Assistant | DX: Z12.31 Encounter for screening mammogram for malignant neoplasm of breast (principal); E78.00 Pure hypercholesterolemia, unspecified; K57.81 Diverticulitis of intestine, part unspecified, with perforation and abscess with bleeding; F17.200 Nicotine dependence, unspecified, uncomplicated ==

== ENCOUNTER → 2020-03-08 | Outpatient (CLI) | payer OTHER | END | disposition home or self-care (01) | LOC: COVID19 03-05 02:18 | PROVIDERS: ATTEND Surgery | DX: Z01.812 Encounter for preprocedural laboratory examination (principal); Z20.828 Contact with and (suspected) exposure to other viral communicable diseases ==

== ENCOUNTER → 2020-03-11 | Day surgery (SDC) | payer OTHER ==
[~2020-03-11] VITALS: Ht 157.4 cm; Wt 77.1 kg
[2020-03-11 08:12] VITALS: BP 127/74
[2020-03-11 08:27] VITALS: BP 123/83
[2020-03-11 08:42] VITALS: BP 140/89
== END | disposition home or self-care (01) ==
LOC: SDC 03-08 13:15
PROVIDERS: ATTEND Surgery
DX: R10.9 Unspecified abdominal pain (principal); D12.2 Benign neoplasm of ascending colon; K21.9 Gastro-esophageal reflux disease without esophagitis; K57.81 Diverticulitis of intestine, part unspecified, with perforation and abscess with bleeding; K29.50 Unspecified chronic gastritis without bleeding; G43.909 Migraine, unspecified, not intractable, without status migrainosus; I10 Essential (primary) hypertension; E66.9 Obesity, unspecified; Z68.31 Body mass index [BMI] 31.0-31.9, adult; Z87.891 Personal history of nicotine dependence; Z79.899 Other long term (current) drug therapy; Z83.3 Family history of diabetes mellitus; Z98.890 Other specified postprocedural states

== ENCOUNTER → 2020-04-14 | Outpatient (CLI) | payer OTHER ==
[~2020-04-14] MED LIST changes: +DOK COLACE100 MG PO; +HYDROCODONE-AC1 EACH PO; +IBU-200200 MG PO; +ZOFRAN4 MG PO
== END | disposition home or self-care (01) ==
LOC: COVID19 00:24
PROVIDERS: ATTEND Surgery
DX: Z01.812 Encounter for preprocedural laboratory examination (principal); Z20.828 Contact with and (suspected) exposure to other viral communicable diseases

== ENCOUNTER 2020-04-19 01:23 | Inpatient (IN) | payer OTHER ==
[2020-04-16 10:48] VITALS: BP 136/88
[~2020-04-19] VITALS: Ht 157 cm; Wt 77.1 kg
[2020-04-19] VITALS (9 sets, daily range): BP systolic 100–134; BP diastolic 39–88
[~2020-04-19 01:23] MED LIST changes: -DOK COLACE100 MG PO; -HYDROCODONE-AC1 EACH PO; -ZOFRAN4 MG PO
[2020-04-19 08:01] LABS: BASO % 0.3 % (0.0-1.0); EOS # 0.1 10*3/uL (0.0-0.4); EOS % 0.8 % (1.0-4.0); HEMATOCRIT 35.2 % (37.0-47.0); LYMPH # 1.2 10*3/uL (1.3-4.4); LYMPH % 8.6 % (27.0-41.0); MEAN CELL VOLUME 79.5 fl (81.0-99.0); MEAN CORPUSCULAR HGB 24.2 pg (27.0-31.0); MEAN CORPUSCULAR HGB CONC 30.4 g/dl (33.0-37.0); MEAN PLATELET VOLUME 11.5 fl (9.6-12.3); MONO # 1.1 10*3/uL (0.1-1.0); NEUT # 11.5 10*3/uL (2.3-7.9); NEUT % 82.1 % (47.0-73.0); PLATELET COUNT AUTOMATED 446 10*3/uL (130-400); RED BLOOD COUNT 4.43 10*6/uL (4.10-5.10); RED CELL DISTRI WIDTH 16.6 % (0-14.5); WHITE BLOOD COUNT 14.1 10*3/uL (4.8-10.8)
[2020-04-19 08:16] LABS: BUN 16 mg/dl (7-24); CHLORIDE 111 mmol/L (98-107); CREATININE 0.86 mg/dL (0.55-1.02); POTASSIUM 3.7 mmol/L (3.5-5.1); SODIUM 140 mmol/L (136-145)
--- NOTE | 2020-04-19 11:59 | NUR ---
Time: 1200 A 54 year old FEMALE admitted to under services of YOSEPH PORTILLO DO. Pt. arrived via bed from OP/ADMIT. Chief complaint: S/P HEMICOLECTOMY. HISSOM,CARINE
--- NOTE | 2020-04-19 12:24 | NUR ---
PT C/O 01/11 STABBING ABD PAIN R/T SX. MEDICATED PER ORDER. WILL MONITOR FOR RELIEF. RESPS EASY AND NON LABORED. RESTING IN BED. CALL LIGHT WITHIN REACH.
--- NOTE | 2020-04-19 13:00 | NUR ---
MEDICATION APPEARS EFFECTIVE. PT SLEEPING. RESPS EASY AND NON LABORED. CALL LIGHT WITHIN REACH.
--- NOTE | 2020-04-19 13:59 | NUR ---
PER DR MATA PT IS TO HAVE ICE CHIPS AND CLEAR LIQUIDS
--- NOTE | 2020-04-19 15:20 | NUR ---
PT C/O DRY/RED EYES. MEDICATED PER ORDER.
--- NOTE | 2020-04-19 17:23 | NUR ---
PT ASSISTED TO SIT UP. C/O 01/11 SHARP ABD PAIN R/T SURGERY. MEDICATED PER ORDER. WILL MONITOR FOR RELIEF. RESPS EASY AND NON LABORED. CALL LIGHT WITHIN REACH.
--- NOTE | 2020-04-19 18:00 | NUR ---
MEDICATION APPEARS EFFECTIVE. PT SLEEPING. RESPS EASY AND NON LABORED. CALL LIGHT WITHIN REACH
--- NOTE | 2020-04-19 20:00 | NUR ---
Pt re-instructed on IS. Pt only getting 500cc. Encouraged pt to cough. Also encouraged 10 breaths every hour.
--- NOTE | 2020-04-19 20:20 | NUR ---
24 HR chart check completed.
--- NOTE | 2020-04-19 20:55 | NUR ---
REQUESTED AND RECEIVED DILAUDID IV PER PRN ORDER FOR COMPLAINTS OF ABD PAIN RATING AN 8. CALL LIGHT WITHIN REACH. WILL MONITOR
--- NOTE | 2020-04-19 21:00 | NUR ---
RESTING IN BED. ENCOURAGE OOB, PATIENT DECLINED STATING THAT THE DR TOLD HER SHE DIDNT HAVE TO GET OOB UNTIL TOMORROW. RESPIRATIONS EASY. LUNGS DIMINISHED, CLEAR. PULSE OX 94% RA. I.S. PRESENT AT BEDSIDE. PATIENT ENCOURAGED TO COUGH AND DEEP BREATH. ABD SOFT WITH HYPO BOWEL SOUNDS, DRESSINGS INTACT. TEDS/SCDS IN PLACE. KIMBLE PATENT. CALL LIGHT WITHIN REACH. NO VOICED COMPLAINTS
--- NOTE | 2020-04-19 21:35 | NUR ---
MEDS APPEAR EFFECTIVE. SLEEPING.
[2020-04-20] VITALS: BP 123/77
--- NOTE | 2020-04-20 00:53 | NUR ---
REQUESTED AND RECEIVED DILAUDID IV PER PRN ORDER FOR COMPLAINTS OF ABD PAIN RATING A 9. CALL LIGHT WITHIN REACH. WILL MONITOR
--- NOTE | 2020-04-20 01:30 | NUR ---
MEDS EFFECTIVE. SLEEPING
--- NOTE | 2020-04-20 05:44 | NUR ---
PATIENT MEDICATED WITH DILAUDID FOR COMPLAINTS OF ABDOMINAL PAIN. WILL MONITOR FOR EFFECTIVENESS. CALL LIGHT IN REACH.
[2020-04-20 06:20] LABS: BASO % 0.1 % (0.0-1.0); EOS % 0.1 % (1.0-4.0); LYMPH # 1.6 10*3/uL (1.3-4.4); LYMPH % 11.7 % (27.0-41.0); MEAN CELL VOLUME 80.3 fl (81.0-99.0); MEAN CORPUSCULAR HGB 24.3 pg (27.0-31.0); MEAN CORPUSCULAR HGB CONC 30.3 g/dl (33.0-37.0); MEAN PLATELET VOLUME 12.4 fl (9.6-12.3); MONO # 1.1 10*3/uL (0.1-1.0); MONO % 8.4 % (3.0-9.0); NEUT # 10.6 10*3/uL (2.3-7.9); NEUT % 79.3 % (47.0-73.0); PLATELET COUNT AUTOMATED 399 10*3/uL (130-400); RED BLOOD COUNT 4.11 10*6/uL (4.10-5.10); RED CELL DISTRI WIDTH 16.7 % (0-14.5); WHITE BLOOD COUNT 13.4 10*3/uL (4.8-10.8)
--- NOTE | 2020-04-20 06:30 | NUR ---
MEDS APPEAR EFFECTIVE. SLEEPING. RESPIRATIONS EASY. CALL LIGHT WITHIN REACH
[2020-04-20 06:37] LABS: CHLORIDE 109 mmol/L (98-107); POTASSIUM 3.9 mmol/L (3.5-5.1); SODIUM 139 mmol/L (136-145)
[2020-04-20 06:44] LABS: ALBUMIN 3.1 gm/dl (3.1-4.5); ALKALINE PHOSPHATASE 67 U/L (45-117); BUN 12 mg/dl (7-24); CREATININE 0.63 mg/dL (0.55-1.02); SGOT/AST 12 IU/L (3-35); SGPT/ALT 13 U/L (12-78); TOTAL PROTEIN 7.3 gm/dL (6.4-8.2)
[2020-04-20 08:00] VITALS: BP 146/80
--- NOTE | 2020-04-20 08:48 | NUR ---
PT REQUESTED AND RECEIVED IV DILAUDID SLOWLY PER PRN ORDER FOR C/O S/P ABD PAIN. RATES PAIN 8/10. SURGICAL DRESSING D/I TO ABDOMEN. WILL MONITOR EFFECTIVENESS. PT ENCOURAGED TO AMBULATE. PT VOICED UNDERSTANDING. CALL LIGHT WITHIN REACH.
--- NOTE | 2020-04-20 09:00 | NUR ---
Promotions Manager in to talk to patient. Patient states lives at home with boyfriend, daughter and grandaughter. There are no steps in the home. Physician: verna lorenzo [facility]acy[facility] [place] health services: none Patient's level of ADLs: INDEPENDENT Patient has working utilities: all working DME: none Follow-up physician's appointment after d/c: will be made by hospitalist nurse director upon discharge Does patient want to access PORTAL?: no Discharge plan dicussed with patient, she states she lives at home with her boyfriend, her daughter and grandaughter. she states she is independent in adls and ambulation, she states she will return home when discharged and denies any home needs, case management will follow. J CARLOS ELLIOTT
--- NOTE | 2020-04-20 09:48 | NUR ---
DILAUDID RELIEVING PAIN PER PT. WILL CONTINUE TO MONITOR.
--- NOTE | 2020-04-20 10:29 | NUR ---
KIMBLE DISCONTINUED PER ORDER. PT TOLERATED WELL. WILL MONITOR OUTPUT. PT ENCOURAGED TO AMBULATE. PT VOICED UNDERSTANDING.
--- NOTE | 2020-04-20 10:35 | NUR ---
PHYSICAL THERAPY Physical Therapy evaluation completed on 5th floor with full evaluation to follow. Recommend physical therapy per plan of care and Home w family support HH upon discharge. Thank you for this referral. Liliya Pichardo PT
--- NOTE | 2020-04-20 10:45 | NUR ---
Occupational Therapy evaluation completed on five with full evaluation to follow. Recommend occupational therapy per plan of care and home with HH and assist from family upon discharge. Thank you for this referral. Priti Lombardi OTR/L
--- NOTE | 2020-04-20 10:56 | NUR ---
PT/OT IN TO SEE PATIENT REGARDING CONSULTS.
[2020-04-20 12:00] VITALS: BP 130/76
--- NOTE | 2020-04-20 12:47 | NUR ---
Nutritional Support Services Note: Pt is on a clear liquid diet. Healing surgical incision s/p hemicolectomy. Advance diet as tolerated. Will follow as needed. Encourage adequate protein and calorie intake. Urszula Lopez Rdn LD
--- NOTE | 2020-04-20 13:14 | NUR ---
PT MEDICATED WITH IV DILAUDID SLOWLY PER PRN ORDER FOR C/O S/P ABD PAIN. RATES PAIN 01/11. WILL MONITOR EFFECTIVENESS. SURGICAL DRESSING D/I. CALL LIGHT WITHIN REACH.
--- NOTE | 2020-04-20 14:14 | NUR ---
DILAUDID RELIEVING PAIN PER PT. WILL CONTINUE TO MONITOR.
[2020-04-20 16:00] VITALS: BP 132/75
--- NOTE | 2020-04-20 16:39 | NUR ---
PT MEDICATED WITH IV DILAUDID SLOWLY PER PRN ORDER FOR C/O S/P ABD PAIN. RATES PAIN 01/11. WILL MONITOR EFFECTIVENESS. VSS. CALL LIGHT WITHIN REACH.
--- NOTE | 2020-04-20 17:39 | NUR ---
DILAUDID RELIEVING PAIN PER PT. WILL CONTINUE TO MONITOR. CALL LIGHT WITHIN REACH.
[2020-04-20 20:00] VITALS: BP 134/89
--- NOTE | 2020-04-20 20:00 | NUR ---
RESTING IN BED. NO ACUTE DISTRESS NOTED. RESPIRATIONS EASY. LUNGS DIMINISHED, CLEAR. PULSE OX 93% RA. ABD SOFTLY DISTENDED WITH HYPO BOWEL SOUNDS, + FLATUS. SURGICAL DRESSING DRY AND INTACT TO ABD. TEDS/SDCS IN PLACE. CALL LIGHT WITHIN REACH. NO VOICED COMPLAINTS
--- NOTE | 2020-04-20 20:16 | NUR ---
24 HR chart check completed.
--- NOTE | 2020-04-20 21:10 | NUR ---
CALLS OUT REQUESTING "SOMETHING FOR PAIN." MEDICATED WITH NORCO PER PRN ORDER FOR COMPLAINTS OF ABD PAIN RATING AN 8. PATIENT STATES "I HOPE THIS WORKS. I WANT SOMETHING TO KNOCK ME OUT." EDUCATED PATIENT REGARDING NORCO AND UP-COMING DISCHARGED. EXPLAINED TO IMPORTANCE OF TRANSITIONING TO PO MEDS VS IV.
--- NOTE | 2020-04-20 22:00 | NUR ---
EARLIER MEDS APPEAR EFFECTIVE. SLEEPING. RESPIRATIONS EASY. CALL LIGHT WITHIN REACH
[2020-04-21] VITALS: BP 118/68
--- NOTE | 2020-04-21 | NUR ---
SLEEPING, NO ACUTE DISTRESS NOTED. RESPIRATIONS EASY. VSS. CALL LIGHT WITHIN REACH
--- NOTE | 2020-04-21 02:58 | NUR ---
REQUESTED AND RECEIVED NORCO PER PRN ORDER FOR COMPLAINTS OF ABD PAIN RATING A 7. CALL LIGHT WITHIN REACH. WILL MONITOR
--- NOTE | 2020-04-21 03:35 | NUR ---
MEDS APPEAR EFFECTIVE. SLEEPING. RESPIRATIONS EASY.
--- NOTE | 2020-04-21 06:00 | NUR ---
SLEEPING. NO DISTRESS NOTED. RESPIRATIONS EASY. CALL LIGHT WITHIN REACH. NO VOICED COMPLAINTS
[2020-04-21 06:44] LABS: BASO % 0.2 % (0.0-1.0); EOS # 0.1 10*3/uL (0.0-0.4); EOS % 1.2 % (1.0-4.0); HEMATOCRIT 33.1 % (37.0-47.0); LYMPH # 2.1 10*3/uL (1.3-4.4); LYMPH % 24.7 % (27.0-41.0); MEAN CORPUSCULAR HGB 23.9 pg (27.0-31.0); MEAN CORPUSCULAR HGB CONC 30.2 g/dl (33.0-37.0); MEAN PLATELET VOLUME 11.9 fl (9.6-12.3); MONO # 0.8 10*3/uL (0.1-1.0); MONO % 9.1 % (3.0-9.0); NEUT # 5.4 10*3/uL (2.3-7.9); NEUT % 64.6 % (47.0-73.0); PLATELET COUNT AUTOMATED 393 10*3/uL (130-400); RED BLOOD COUNT 4.19 10*6/uL (4.10-5.10); RED CELL DISTRI WIDTH 16.7 % (0-14.5); WHITE BLOOD COUNT 8.3 10*3/uL (4.8-10.8)
[2020-04-21 08:00] VITALS: BP 138/93
--- NOTE | 2020-04-21 08:52 | NUR ---
PT REQUESTED AND RECEIVED PO NORCO PER PRN ORDER FOR C/O ABD PAIN.RATES PAIN 7/10. TOLERATING BREAKFAST WITHOUT ANY DIFFICULTY. WILL MONITOR EFFECTIVENESS. SURGICAL DRESSING TO ABD D/I. CALL LIGHT WITHIN REACH. VSS.
--- NOTE | 2020-04-21 09:00 | NUR ---
case management visits with patient, discussed with her her living conditions. she stated she would like someone to help her find a new residence. educated her that case management would have psychotherapist social worker talk with her regarding the process of how to apply for a new residence and help her with other questions she may have. educated her that case management will also set up [facility] with nursing and a psychotherapist social worker to continue helping her with this process when discharged
--- NOTE | 2020-04-21 09:52 | NUR ---
NORCO RELIEVING PAIN PER PT. WILL CONTINUE TO MONITOR.
--- NOTE | 2020-04-21 10:00 | NUR ---
PT TOLERATED SOFT DIET WITHOUT ANY DIFFICULTY.
--- NOTE | 2020-04-21 11:00 | NUR ---
OT NOTE Pt was seen this A.M. 1:1 for 15 minute OT session. Upon arrival pt was supine in bed. Pt identified by name and and had complaints of 5/10 abdominal pain. Pt transferred supine to sit EOB with SBA while using log rolling technique. While sitting EOB pt donned B socks independent while bringing leg up to knee level. Sit to stand completed from bed level with SBA followed by functional mobility to the bathroom and back and around the room with SBA. Pt was able to tolerate aprox 8 minutes of activity before sitting due to pain which she still rated as a 5/10. After a seated rest break challenged pt's dynamic standing balance while weight shifting, crossing midline, and reaching over all planes. Pt was able to maintain G standing balance throughout. Pt was left sitting reclined in the recliner with call light in hand, tray table in place, and phone in reach. Continue with rec D/C plan to SNF. HUGO Sher
--- NOTE | 2020-04-21 11:08 | NUR ---
PHYSICAL THERAPY TREATMENT TIME: IN 10:40 AM 18 MINUTES TOTAL Patien presented to therapy in supine with head of bed elevated and bed alarm on. Patient has minimal pain in the abdominal area. Patient reports feeling better. Patient gives informed consent for treatment. Patient was identified by name and on wristband. Patient
[2020-04-21 12:00] VITALS: BP 126/81
--- NOTE | 2020-04-21 13:49 | NUR ---
case management faxed home health face to face, home health order and patient's information to [facility] and informed them patient is potential discharge to home tomorrow
--- NOTE | 2020-04-21 15:13 | NUR ---
PT MEDICATED WITH PO NORCO PER PRN ORDER FOR C/O ABD PAIN. RATES PAIN 12/11. ABD DRESSING D/I. WILL MONITOR EFFECTIVENESS.
[2020-04-21 16:00] VITALS: BP 131/93
--- NOTE | 2020-04-21 16:13 | NUR ---
NORCO RELIEVING PAIN PER PT. WILL CONTINUE TO MONITOR.
[2020-04-21 20:00] VITALS: BP 124/90
--- NOTE | 2020-04-21 20:10 | NUR ---
24 HR chart check completed.
--- NOTE | 2020-04-21 20:30 | NUR ---
RESTING IN BED WITH NO ACUTE DISTRESS NOTED. RESPIRATIONS EASY. LUNGS DIMINISHED, CLEAR. PULSE OX 97% RA. ABD SOFT WITH HYPO BOWEL SOUNDS, DENIES N/V/D, LOOSE STOOLS X 3. SURGICAL DRESSING DRY AND INTACT ABD. TEDS/SCDS IN PLACE. CALL LIGHT WITHIN REACH. NO VOICED COMPLAINTS
--- NOTE | 2020-04-21 21:45 | NUR ---
REQUESTED AND RECEIVED NORCO PER PRN ORDER FOR COMPLAINTS OF ABD PAIN RATING A 5. CALL LIGHT WITHIN REACH. WILL MONITOR
--- NOTE | 2020-04-21 22:30 | NUR ---
STATES RELIEF FROM EARLIER MEDS. CALL LIGHT WITHIN REACH. NO FURTHER VOICED COMPLAINTS
[2020-04-22] VITALS: BP 113/79
--- NOTE | 2020-04-22 | NUR ---
SLEEPING. NO DISTRESS NOTED. RESPIRATIONS EASY. VSS. CALL LIGHT WITHIN REACH
--- NOTE | 2020-04-22 04:19 | NUR ---
REQUESTED AND RECEIVED NORCO PER PRN ORDER FOR COMPLAINTS OF ABD PAIN RATING A 5. CALL LIGHT WITHIN REACH. WILL MONITOR
--- NOTE | 2020-04-22 05:00 | NUR ---
MEDS APPEAR EFFECTIVE, SLEEPING
[2020-04-22 08:00] VITALS: BP 103/67
--- NOTE | 2020-04-22 08:40 | NUR ---
PHYSICAL THERAPY Patient seen this am 1:1 for therapy visit and was sitting up on EOB upon therapist arrival. Patient identified by name / and joined by OT life science research assistant for observation this morning. Patient reports only mild abdominal discomfort near surgical site and transfers sit to stand with Supervision. Patient ambulates without AD, 120' x 2, SBA, while demonstrating slow, steady padmini. Patient educated on safe step sequence prior to navigating up/down 4 steps, use of single handrail support, SBA, demonstrating single step sequence. Patient returned to EOB sit, stating she felt confident in returning home to enter her trailor with 3 steps to navigate. Patient remained EOB sit with call light, tray table and cell phone, voicing no new c/o's. Will continue per POC as tolerated, total treatment time 20 minutes. aFrhat Holly, BLOCK SAWYER
--- NOTE | 2020-04-22 08:50 | NUR ---
OT NOTE Pt was seen this A.M. 1:1 for 15 minute OT session. Upon arrival pt was supine in bed. Pt identified by name and and had complaints of 5/10 abdominal pain. Pt transferred supine to sit EOB with supervision while using log roll technique. While sitting pt donned B socks independent. Sit to stand completed from bed level with SBA followed by functional mobility to the bathroom with SBA. There she transferred on/off standard commode with supervision. Clothing management completed with supervision. Pt then stood sink side while washing her hands with SBA. Functional mobility completed back to the EOB. Challenged pt's dynamic standing balance while weight shifting, crossing midline, and reaching over all planes pt was able to maintain G standing balance throughout. Pt was left sitting upright on the EOB with call light in hand. tray table in place, and call light in hand. Continue with rec D/C plan to home with home health. JOSE Sher/Kaushik
--- NOTE | 2020-04-22 10:05 | NUR ---
PT SITTING UP IN BED. RESP-EASY AND REGULAR. PT C/O ABDOMINAL PAIN, RATES PAIN 5 OR 6 ON PAIN SCALE. MEDICATED WITH NORCO PO PER PRN ORDER, SEE EMAR. CALL LIGHT IN REACH. SEE SHIFT ASSESSMENT.
[2020-04-22] MEDS ORDERED: HYDROCODONE-AC1 EACH PO ×2 (10:43→10:46)
[2020-04-22] MEDS ORDERED: DOK COLACE100 MG PO (10:43)
--- NOTE | 2020-04-22 11:07 | NUR ---
Nutritional Support Services Note: Diet advanced to soft. Tolerating po intake. Encouraged healthy eating, adequate calories and protein to promote healing. Will follow as needed. No nutrition intervention needed at this time. Urszula Lopez Rdn Ld
--- NOTE | 2020-04-22 12:00 | NUR ---
Discharge instructions reviewed with patient/family. Patient receptive and verbalizes understanding. Follow-up care arranged. Written instructions given to patient/family. HEPLOCK REMOVED 2X2 APPLIED. SHOAIB RUDD
--- NOTE | 2020-04-22 12:15 | NUR ---
ESCORTED VIA WHEELCHAIR FOR DISCHARGE.
--- NOTE | 2020-04-22 12:23 | NUR ---
BALLOON DIPPER PROVIDED THE PATIENT WITH INFORMATION ON HOW TO APPLY FOR MEDICAID AND HOUSING APPLICATION FOR ODD FELLOWS.
--- NOTE | 2020-04-23 07:46 | NUR ---
PHYSICAL THERAPY CO-SIGN I approve of the Physical Therapy notes written above. TRACI MALDONADO PT, DPT
--- NOTE | 2020-04-23 10:12 | NUR ---
OCCUPATIONAL THERAPY CO-SIGN I approve of the Occupational Therapy notes written above. MELODIE FAIRCHILD OTR/Kaushik
[2020-05-24] MEDS ORDERED: ZOFRAN4 MG PO (08:17)
[2020-05-24] MEDS ORDERED: NORCO 5-325 TA1 EACH PO (08:17)
== END 2020-04-22 12:29 | disposition home health service (06) | DRG 231 ==
LOC: CANPRESDC → SDC 01:23 → 5E 09:07 → SDC 09:30 → 5E 04-22 12:29
PROVIDERS: Nurse Anesthetist, Certified Registered; Registered Nurse; Surgery; ADMIT Internal Medicine; ATTEND Internal Medicine
PROC: 0DTF0ZZ Resection of Right Large Intestine, Open Approach (ICD-10-PCS; principal; 2020-04-19)
PROC: 0DJD4ZZ Inspection of Lower Intestinal Tract, Percutaneous Endoscopic Approach (ICD-10-PCS; 2020-04-19)
DX: C18.2 Malignant neoplasm of ascending colon (principal); D72.829 Elevated white blood cell count, unspecified; E78.00 Pure hypercholesterolemia, unspecified; E87.8 Other disorders of electrolyte and fluid balance, not elsewhere classified; F17.210 Nicotine dependence, cigarettes, uncomplicated; E66.9 Obesity, unspecified; E44.0 Moderate protein-calorie malnutrition; D64.9 Anemia, unspecified; Z68.32 Body mass index [BMI] 32.0-32.9, adult; Z98.51 Tubal ligation status; Z80.0 Family history of malignant neoplasm of digestive organs; Z84.89 Family history of other specified conditions; Z80.1 Family history of malignant neoplasm of trachea, bronchus and lung; Z80.8 Family history of malignant neoplasm of other organs or systems; Z83.3 Family history of diabetes mellitus

== ENCOUNTER → 2020-05-19 | Outpatient (CLI) | payer OTHER ==
[~2020-05-19] MED LIST changes: +DOK COLACE100 MG PO; +HYDROCODONE-AC1 EACH PO; +ZOFRAN4 MG PO
== END | disposition home or self-care (01) ==
LOC: COVID19 08:42
PROVIDERS: ATTEND Physician Assistant
DX: Z01.812 Encounter for preprocedural laboratory examination (principal); Z20.828 Contact with and (suspected) exposure to other viral communicable diseases

== ENCOUNTER → 2020-05-24 | Day surgery (SDC) | payer OTHER ==
[~2020-05-24] VITALS: Ht 157.4 cm; Wt 82.6 kg
[2020-05-24 06:43] VITALS: BP 135/109
[2020-05-24 08:09] VITALS: BP 96/61
[2020-05-24 08:25] VITALS: BP 88/59
[2020-05-24 08:40] VITALS: BP 106/74
[2020-05-24 08:55] VITALS: BP 115/69
[2020-05-24 09:30] VITALS: BP 119/77
== END ==
LOC: SDC 05-20 08:00
PROVIDERS: ATTEND Surgery
DX: C18.9 Malignant neoplasm of colon, unspecified (principal); I10 Essential (primary) hypertension; Z98.890 Other specified postprocedural states; F17.210 Nicotine dependence, cigarettes, uncomplicated; E78.5 Hyperlipidemia, unspecified; F32.9 Major depressive disorder, single episode, unspecified; F41.9 Anxiety disorder, unspecified

== ENCOUNTER → 2020-06-24 | Outpatient (CLI) | payer OTHER | END | disposition home or self-care (01) | LOC: CT 06-22 08:00 | PROVIDERS: ATTEND Internal Medicine Hematology & Oncology | DX: N20.0 Calculus of kidney (principal); C18.2 Malignant neoplasm of ascending colon; K57.30 Diverticulosis of large intestine without perforation or abscess without bleeding; M47.814 Spondylosis without myelopathy or radiculopathy, thoracic region; M47.816 Spondylosis without myelopathy or radiculopathy, lumbar region ==

== ENCOUNTER 2021-02-28 15:53 | Emergency (ER) | payer OTHER ==
[~2021-02-28] VITALS: Ht 157.4 cm; Wt 88.0 kg
[2021-02-28] MEDS ORDERED: NAPROSYN500 MG PO (19:47)
[2021-02-28] MEDS ORDERED: PREDNISONE20 M1 PO (19:47)
== END 2021-02-28 19:59 | disposition home or self-care (01) ==
LOC: ED 15:53
DX: M54.41 Lumbago with sciatica, right side (principal)

== ENCOUNTER → 2021-07-12 | Outpatient (CLI) | payer OTHER ==
[~2021-07-12] MED LIST changes: +NAPROSYN500 MG PO; +PREDNISONE20 M1 PO
[2021-07-12 08:06] LABS: CREATININE 0.78 mg/dL (0.55-1.02)
== END | disposition home or self-care (01) ==
LOC: CT 06-27 10:00 → LAB 07:32 → CT 08:00
PROVIDERS: Radiology Diagnostic Radiology; ATTEND Internal Medicine Hematology & Oncology
DX: C18.2 Malignant neoplasm of ascending colon (principal); M25.78 Osteophyte, vertebrae; M51.37 Other intervertebral disc degeneration, lumbosacral region; M51.34 Other intervertebral disc degeneration, thoracic region; M47.817 Spondylosis without myelopathy or radiculopathy, lumbosacral region; R16.2 Hepatomegaly with splenomegaly, not elsewhere classified; K76.0 Fatty (change of) liver, not elsewhere classified; K43.9 Ventral hernia without obstruction or gangrene; K42.9 Umbilical hernia without obstruction or gangrene

== ENCOUNTER → 2022-06-08 | Outpatient (CLI) | payer OTHER | END | disposition home or self-care (01) | LOC: MAMMO 09:00 | PROVIDERS: ATTEND Physician Assistant | DX: Z12.31 Encounter for screening mammogram for malignant neoplasm of breast (principal); N64.9 Disorder of breast, unspecified ==

== ENCOUNTER 2022-06-19 13:36 | Inpatient (IN) | payer OTHER ==
[~2022-06-19] VITALS: Ht 157.4 cm; Wt 94.6 kg
[2022-06-19 13:54] VITALS: BP 126/88
[2022-06-19] MEDS ORDERED: DIABETA,MICRO1.25 MG PO (13:55)
[2022-06-19 14:33] LABS: BASO % 0.2 % (0.0-1.0); EOS # 0.1 10*3/uL (0.0-0.4); EOS % 0.3 % (1.0-4.0); HEMATOCRIT 42.2 % (37.0-47.0); LYMPH # 1.3 10*3/uL (1.3-4.4); LYMPH % 8.7 % (27.0-41.0); MEAN CELL VOLUME 89.8 fl (81.0-99.0); MEAN CORPUSCULAR HGB 30.2 pg (27.0-31.0); MEAN CORPUSCULAR HGB CONC 33.6 g/dl (33.0-37.0); MEAN PLATELET VOLUME 11.3 fl (9.6-12.3); MONO # 1.4 10*3/uL (0.1-1.0); MONO % 9.4 % (3.0-9.0); NEUT # 11.7 10*3/uL (2.3-7.9); NEUT % 80.8 % (47.0-73.0); PLATELET COUNT AUTOMATED 374 10*3/uL (130-400); WHITE BLOOD COUNT 14.4 10*3/uL (4.8-10.8)
[2022-06-19 14:39] LABS: BILIRUBIN Negative (Negative); BLOOD Negative (Negative); CLARITY Cloudy (Clear); COLOR Yellow (Yellow); GLUCOSE Negative (Negative); KETONE Trace (Negative); LEUKO ESTERASE Trace (Negative); NITRITE Negative (Negative); SPECIFIC GRAVITY 1.025 (1.001-1.030)
[2022-06-19 14:50] LABS: ALKALINE PHOSPHATASE 69 U/L (46-116); BUN 11 mg/dl (9-23); CHLORIDE 99 mmol/L (98-107); LIPASE 25 U/L (12-53); POTASSIUM 3.7 mmol/L (3.4-5.1); SGPT/ALT 13 U/L (10-49); TOTAL PROTEIN 8.2 gm/dL (6.0-8.0)
[2022-06-19 15:14] LABS: EPITHELIAL CELLS 31-40; RBC 0-2 rbc/hpf (0-2)
[2022-06-19 21:00] VITALS: BP 134/82
[2022-06-19 21:05] VITALS: BP 114/76
[2022-06-20] VITALS: BP 113/70
[2022-06-20 06:25] LABS: ACT PARTIAL THROMBO TIME 30.4 SECONDS (20.0-32.1); INTERNATIONAL NORM RATIO 1.1 (2.0-3.5)
[2022-06-20 06:35] LABS: BASO % 0.2 % (0.0-1.0); EOS % 0.3 % (1.0-4.0); LYMPH # 1.8 10*3/uL (1.3-4.4); LYMPH % 13.5 % (27.0-41.0); MEAN CELL VOLUME 90.7 fl (81.0-99.0); MEAN CORPUSCULAR HGB 30.1 pg (27.0-31.0); MEAN CORPUSCULAR HGB CONC 33.2 g/dl (33.0-37.0); MEAN PLATELET VOLUME 11.8 fl (9.6-12.3); MONO # 1.1 10*3/uL (0.1-1.0); MONO % 8.5 % (3.0-9.0); NEUT # 10.3 10*3/uL (2.3-7.9); PLATELET COUNT AUTOMATED 328 10*3/uL (130-400); RED BLOOD COUNT 4.19 10*6/uL (4.10-5.10); RED CELL DISTRI WIDTH 13.1 % (0-14.5); WHITE BLOOD COUNT 13.3 10*3/uL (4.8-10.8)
[2022-06-20 07:21] LABS: ALKALINE PHOSPHATASE 61 U/L (46-116); BUN 8 mg/dl (9-23); CHLORIDE 101 mmol/L (98-107); POTASSIUM 3.5 mmol/L (3.4-5.1); SGPT/ALT 10 U/L (10-49)
[2022-06-20 08:00] VITALS: BP 100/66
[2022-06-20 12:00] VITALS: BP 126/70
[2022-06-20 16:00] VITALS: BP 106/71
[2022-06-20 20:00] VITALS: BP 110/77
[2022-06-21] VITALS: BP 110/90
[2022-06-21 06:19] LABS: BASO % 0.2 % (0.0-1.0); EOS # 0.1 10*3/uL (0.0-0.4); EOS % 0.5 % (1.0-4.0); HEMATOCRIT 35.9 % (37.0-47.0); LYMPH # 2.1 10*3/uL (1.3-4.4); LYMPH % 16.3 % (27.0-41.0); MEAN CELL VOLUME 90.4 fl (81.0-99.0); MEAN CORPUSCULAR HGB 29.5 pg (27.0-31.0); MEAN CORPUSCULAR HGB CONC 32.6 g/dl (33.0-37.0); MEAN PLATELET VOLUME 11.9 fl (9.6-12.3); MONO % 8.1 % (3.0-9.0); NEUT # 9.5 10*3/uL (2.3-7.9); NEUT % 74.6 % (47.0-73.0); PLATELET COUNT AUTOMATED 308 10*3/uL (130-400); RED BLOOD COUNT 3.97 10*6/uL (4.10-5.10); RED CELL DISTRI WIDTH 13.2 % (0-14.5); WHITE BLOOD COUNT 12.7 10*3/uL (4.8-10.8)
[2022-06-21 06:25] LABS: BUN 8 mg/dl (9-23); CHLORIDE 101 mmol/L (98-107); POTASSIUM 3.8 mmol/L (3.4-5.1)
[2022-06-21 08:00] VITALS: BP 111/59
[2022-06-21 12:00] VITALS: BP 107/66
[2022-06-21 16:00] VITALS: BP 116/73
[2022-06-21 21:17] VITALS: BP 139/73
[2022-06-22] VITALS: BP 125/70
[2022-06-22 06:29] LABS: BASO % 0.3 % (0.0-1.0); EOS # 0.1 10*3/uL (0.0-0.4); EOS % 0.7 % (1.0-4.0); HEMATOCRIT 35.3 % (37.0-47.0); LYMPH % 17.2 % (27.0-41.0); MEAN CELL VOLUME 90.1 fl (81.0-99.0); MEAN CORPUSCULAR HGB 29.6 pg (27.0-31.0); MEAN CORPUSCULAR HGB CONC 32.9 g/dl (33.0-37.0); MONO % 8.6 % (3.0-9.0); NEUT # 8.4 10*3/uL (2.3-7.9); NEUT % 72.7 % (47.0-73.0); PLATELET COUNT AUTOMATED 308 10*3/uL (130-400); RED BLOOD COUNT 3.92 10*6/uL (4.10-5.10); RED CELL DISTRI WIDTH 13.1 % (0-14.5); WHITE BLOOD COUNT 11.5 10*3/uL (4.8-10.8)
[2022-06-22 06:40] LABS: BUN 8 mg/dl (9-23); CHLORIDE 100 mmol/L (98-107); POTASSIUM 3.6 mmol/L (3.4-5.1)
[2022-06-22 07:30] VITALS: BP 120/52
[2022-06-22 11:49] VITALS: BP 123/72
[2022-06-22 16:00] VITALS: BP 112/82
[2022-06-22 20:00] VITALS: BP 112/75
[2022-06-23] VITALS: BP 110/79
[2022-06-23 06:20] LABS: BASO % 0.2 % (0.0-1.0); EOS # 0.1 10*3/uL (0.0-0.4); EOS % 0.9 % (1.0-4.0); LYMPH # 1.7 10*3/uL (1.3-4.4); LYMPH % 15.4 % (27.0-41.0); MEAN CELL VOLUME 88.8 fl (81.0-99.0); MEAN CORPUSCULAR HGB 29.2 pg (27.0-31.0); MEAN CORPUSCULAR HGB CONC 32.9 g/dl (33.0-37.0); MEAN PLATELET VOLUME 12.3 fl (9.6-12.3); MONO # 1.2 10*3/uL (0.1-1.0); MONO % 10.8 % (3.0-9.0); NEUT # 7.8 10*3/uL (2.3-7.9); NEUT % 72.3 % (47.0-73.0); PLATELET COUNT AUTOMATED 306 10*3/uL (130-400); RED BLOOD COUNT 3.83 10*6/uL (4.10-5.10); RED CELL DISTRI WIDTH 12.9 % (0-14.5); WHITE BLOOD COUNT 10.8 10*3/uL (4.8-10.8)
[2022-06-23 08:00] VITALS: BP 116/69
[2022-06-23 10:12] LABS: BUN 6 mg/dl (9-23); CHLORIDE 100 mmol/L (98-107); POTASSIUM 3.4 mmol/L (3.4-5.1)
[2022-06-23 12:00] VITALS: BP 114/64
[2022-06-23] MEDS ORDERED: METRONIDAZOLE500 M1 PO (14:33)
[2022-06-23] MEDS ORDERED: LEVOFLOXACIN750 M2 PO (14:33)
[2022-06-23] MEDS ORDERED: AMOXICILLIN500 M3 PO (14:33)
== END 2022-06-23 15:50 | disposition home health service (06) | DRG 720 ==
LOC: ED 13:36 → EDHOLD 16:41 → 5E 16:41 → EDHOLD 17:19 → 5E 19:12
PROVIDERS: Internal Medicine; Nurse Practitioner Family; Student in an Organized Health Care Education/Training Program; ADMIT Internal Medicine; ATTEND Internal Medicine
PROC: 0D9N30Z Drainage of Sigmoid Colon with Drainage Device, Percutaneous Approach (ICD-10-PCS; principal; 2022-06-20)
DX: A41.9 Sepsis, unspecified organism (principal); K57.20 Diverticulitis of large intestine with perforation and abscess without bleeding; E44.0 Moderate protein-calorie malnutrition; N20.0 Calculus of kidney; B96.20 Unspecified Escherichia coli [E. coli] as the cause of diseases classified elsewhere; E78.2 Mixed hyperlipidemia; I10 Essential (primary) hypertension; E66.9 Obesity, unspecified; R73.9 Hyperglycemia, unspecified; Z98.51 Tubal ligation status; Z85.038 Personal history of other malignant neoplasm of large intestine; Z68.38 Body mass index [BMI] 38.0-38.9, adult

== ENCOUNTER → 2022-07-10 | Outpatient (CLI) | payer OTHER ==
[~2022-07-10] MED LIST changes: +AMOXICILLIN500 M3 PO; +DIABETA,MICRO1.25 MG PO; +LEVOFLOXACIN750 M2 PO; +METRONIDAZOLE500 M1 PO
== END | disposition home or self-care (01) ==
LOC: CT 09:23
PROVIDERS: ATTEND Surgery
DX: N20.0 Calculus of kidney (principal); K42.9 Umbilical hernia without obstruction or gangrene; K57.81 Diverticulitis of intestine, part unspecified, with perforation and abscess with bleeding

== ENCOUNTER 2022-07-28 19:30 | Emergency (ER) | payer OTHER ==
[~2022-07-28 19:30] MED LIST changes: +HYDROCODONE-AC1 EAC1 PO
[2022-07-29] MEDS ORDERED: CEPHALEXIN500 M1 PO (16:04)
== END 2022-07-28 19:43 | disposition home or self-care (01) ==
LOC: ED 19:30
DX: Z48.815 Encounter for surgical aftercare following surgery on the digestive system (principal); Z93.3 Colostomy status; Z79.899 Other long term (current) drug therapy; Z98.51 Tubal ligation status; Z98.890 Other specified postprocedural states; Z87.891 Personal history of nicotine dependence

== ENCOUNTER 2022-07-29 15:32 | Emergency (ER) | payer OTHER ==
[~2022-07-29] VITALS: Ht 157.4 cm
[2022-07-29] MEDS ORDERED: CEPHALEXIN500 M1 PO (16:04)
== END 2022-07-29 16:17 | disposition home or self-care (01) ==
LOC: ED 15:32
DX: Z48.01 Encounter for change or removal of surgical wound dressing (principal); I10 Essential (primary) hypertension; Z98.51 Tubal ligation status; Z98.890 Other specified postprocedural states; F17.200 Nicotine dependence, unspecified, uncomplicated

== ENCOUNTER 2022-08-01 08:47 | Emergency (ER) | payer OTHER ==
[~2022-08-01] VITALS: Ht 157.4 cm; Wt 83.5 kg
[~2022-08-01 08:47] MED LIST changes: +CEPHALEXIN500 M1 PO
== END 2022-08-01 11:09 | disposition home or self-care (01) ==
LOC: ED 08:47
DX: Z48.03 Encounter for change or removal of drains (principal); Z98.51 Tubal ligation status; Z98.890 Other specified postprocedural states; F17.200 Nicotine dependence, unspecified, uncomplicated; I10 Essential (primary) hypertension

== ENCOUNTER 2023-09-05 12:47 | Emergency (ER) | payer OTHER ==
[~2023-09-05] VITALS: Ht 157.4 cm; Wt 92.1 kg
[2023-09-05] MEDS ORDERED: Ketorolac Tromethamine 15 MG/ML VIAL IV ONE (13:20)
[2023-09-05] MEDS ORDERED: Ondansetron Hydrochloride 4 MG/2 ML VIAL IV ONE (13:20)
[2023-09-05] MEDS ORDERED: MORPHINE Sulfate 2 MG/ML SYR IV ONE (13:20)
[2023-09-05] MEDS ORDERED: SODIUM CHLORIDE 0.9% 1,000 ML IV ONE (13:20)
[2023-09-05] MEDS ORDERED: IOHEXOL 300 MG/ML 100 ML VIAL IV ONE (13:25)
[2023-09-05 13:36] LABS: BASO % 0.3 % (0.0-1.0); EOS # 0.1 10*3/uL (0.0-0.4); EOS % 1.4 % (1.0-4.0); HEMATOCRIT 44.2 % (37.0-47.0); LYMPH # 2.2 10*3/uL (1.3-4.4); LYMPH % 23.3 % (27.0-41.0); MEAN CELL VOLUME 90.2 fl (81.0-99.0); MEAN CORPUSCULAR HGB CONC 33.3 g/dl (33.0-37.0); MONO # 0.9 10*3/uL (0.1-1.0); MONO % 9.1 % (3.0-9.0); NEUT # 6.2 10*3/uL (2.3-7.9); NEUT % 65.7 % (47.0-73.0); PLATELET COUNT AUTOMATED 276 10*3/uL (130-400); RED CELL DISTRI WIDTH 13.2 % (0-14.5); WHITE BLOOD COUNT 9.4 10*3/uL (4.8-10.8)
[2023-09-05 13:58] LABS: ALKALINE PHOSPHATASE 69 U/L (46-116); BUN 14 mg/dl (9-23); CHLORIDE 107 mmol/L (98-107); LIPASE 64 U/L (12-53); POTASSIUM 4.1 mmol/L (3.4-5.1); SGPT/ALT 26 U/L (5-49); TOTAL PROTEIN 7.1 gm/dL (6.0-8.0)
[2023-09-05] MEDS ORDERED: SIMETHICONE80 MG PO (15:17)
[2023-09-05] MEDS ORDERED: TRAMADOL HCL50 MG PO (15:17)
== END 2023-09-05 15:52 | disposition home or self-care (01) ==
LOC: ED 12:47
PROVIDERS: Emergency Medicine
DX: R10.84 Generalized abdominal pain (principal); I10 Essential (primary) hypertension; E78.5 Hyperlipidemia, unspecified; F17.200 Nicotine dependence, unspecified, uncomplicated; Z93.3 Colostomy status; Z79.2 Long term (current) use of antibiotics; Z79.899 Other long term (current) drug therapy; Z98.51 Tubal ligation status

== ENCOUNTER → 2023-09-27 | Outpatient (CLI) | payer OTHER ==
[~2023-09-27] MED LIST changes: +SIMETHICONE80 MG PO; +TRAMADOL HCL50 MG PO
== END | disposition home or self-care (01) ==
LOC: MAMMO 00:10
PROVIDERS: ATTEND Physician Assistant
DX: Z12.31 Encounter for screening mammogram for malignant neoplasm of breast (principal)

== ENCOUNTER → 2024-09-15 | Outpatient (CLI) | payer OTHER ==
[~2024-09-15] MED LIST changes: +IOHEXOL 300 MG/ML 100 ML VIAL IV ONE; +IOHEXOL 300 MG/ML 100 ML VIAL ONE
== END | disposition home or self-care (01) ==
LOC: CT 01:40
PROVIDERS: ATTEND Internal Medicine Hematology & Oncology
DX: C18.9 Malignant neoplasm of colon, unspecified (principal); I25.10 Atherosclerotic heart disease of native coronary artery without angina pectoris; R91.1 Solitary pulmonary nodule; K59.00 Constipation, unspecified; N20.0 Calculus of kidney; Z98.890 Other specified postprocedural states